=== PATIENT | male | born 1975 | race African-American/Black ===

== ENCOUNTER 2018-11-26 00:47 | Emergency (ER) | payer SELFPAY ==
[~2018-11-26] VITALS: Ht 180.3 cm; Wt 82.0 kg
[2018-11-26 01:41] VITALS: BP 129/81
== END 2018-11-26 02:55 | disposition left against medical advice (07) ==
LOC: ER 00:47
DX: M79.604 Pain in right leg (principal); Z53.21 Procedure and treatment not carried out due to patient leaving prior to being seen by health care provider